=== PATIENT | female | born 1985 | race Caucasian/White ===

== ENCOUNTER 2018-07-25 21:45 | Emergency (ER) | payer SELFPAY ==
[~2018-07-25] VITALS: Ht 152.4 cm; Wt 78.5 kg
[~2018-07-25 21:45] MED LIST: FERR-43 PO
[2018-07-26] MEDS ORDERED: IBUPROFEN 600MG TABLET PO STA (00:08)
[2018-07-26] MEDS ORDERED: KETOROLAC 60MG/2ML VIAL IM ONE (02:15)
[2018-07-26 02:30] VITALS: BP 107/61
== END 2018-07-26 03:13 | disposition home or self-care (01) ==
LOC: ER 21:45
DX: S20.219A Contusion of unspecified front wall of thorax, initial encounter (principal); Z79.899 Other long term (current) drug therapy; V49.88XA Car occupant (driver) (passenger) injured in other specified transport accidents, initial encounter; Y93.89 Activity, other specified; Y92.89 Other specified places as the place of occurrence of the external cause; Y99.8 Other external cause status
CPT/HCPCS: 71045; 81025; 93005; 96372; 99283; J1885

== ENCOUNTER 2020-07-10 12:38 | Inpatient (IN) | payer SELFPAY ==
[~2020-07-10] VITALS: Ht 172.7 cm; Wt 72.1 kg
[2020-07-10] MEDS ORDERED: ACETAMINOPHEN 325MG TABLET PO ONE (13:30)
[2020-07-10 16:17] LABS: BASOPHILS % 1.1 % (0.0-2.0); EOSINOPHILS % 2.3 % (0.0-5.0); HEMATOCRIT. 38.7 % (36.0-48.0); HEMOGLOBIN. 12.7 g/dL (12.0-16.0); LYMPHOCYTES % 30.4 % (20.0-50.0); MEAN CORPUSCULAR HEMOGLOBIN 30.2 pg (28.0-32.0); MEAN CORPUSCULAR VOLUME 91.9 fL (81.0-99.0); MEAN PLATELET VOLUME 9.9 fl (7.4-10.4); MONOCYTES % 8.1 % (2.0-8.0); NEUTROPHILS % 58.1 % (40.0-76.0); PLATELET 287 x1000/uL (130-400); RED BLOOD CELL COUNT 4.21 mill/uL (4.2-5.4); RED CELL DISTRIBUTION WIDTH 12.9 % (11.6-14.6)
[2020-07-10 16:21] LABS: CHLORIDE 105 mEq/L (98-107)
[2020-07-10 16:33] LABS: B-HCG QUANTITATIVE < 1 mIU/mL (<3)
[2020-07-10] MEDS ORDERED: SODIUM CHLORIDE 0.9% 1,000 ML IV ONE (17:45)
[2020-07-10] MEDS ORDERED: MORPHINE SULFATE 4 MG/ML CPJ (NOT FOR IM USE) IV ONE (17:45)
[2020-07-10] MEDS ORDERED: IOHEXOL-300 100 ML BOTTLE ONE (18:22)
[2020-07-10 20:45] VITALS: BP 95/61
[2020-07-10] MEDS ORDERED: IPRATROPIUM/ALBUTEROL 0.5-3(2.5)MG/3ML NEB HHN PRN (22:15)
[2020-07-10] MEDS ORDERED: MORPHINE SULFATE 2 MG/ML CPJ (NOT FOR IM USE) IV PRN (22:15)
[2020-07-10] MEDS ORDERED: HYDROCODONE/ACETAMINOPHEN 5/325MG TABLET PO PRN (22:15)
[2020-07-10] MEDS ORDERED: MAGNESIUM/ALUMINUM HYDROXIDE/SIMETHICONE 30ML UDC PO PRN (22:15)
[2020-07-10] MEDS ORDERED: ONDANSETRON HCL 4MG/2ML INJ IV PRN (22:15)
[2020-07-10] MEDS ORDERED: ACETAMINOPHEN 325MG TABLET PO PRN (22:15)
[2020-07-10] MEDS ORDERED: CLONIDINE 0.1MG TABLET PO PRN (22:15)
[2020-07-10] MEDS ORDERED: DIPHENHYDRAMINE 50MG/ML VIAL IV PRN (22:15)
[2020-07-10] MEDS ORDERED: DOCUSATE SODIUM 100MG CAPSULE PO PRN (22:15)
[2020-07-10] MEDS ORDERED: HYDRALAZINE 20MG/ML VIAL IV PRN (22:15)
[2020-07-10] MEDS ORDERED: GUAIFENESIN 200MG/10ML SUGAR FREE UDC PO PRN (22:15)
[2020-07-10] MEDS ORDERED: LORAZEPAM 2MG/ML CPJ IV PRN (22:15)
[2020-07-10] MEDS ORDERED: HYDRALAZINE 10 MG in SODIUM CHLORIDE 0.9% 49.5 ML IV PRN (22:30)
[2020-07-10] MEDS: ENOXAPARIN 40MG/0.4ML SYR SUBCUT SCH (23:00)
[2020-07-11] VITALS: BP 94/53
[2020-07-11] MEDS: ENOXAPARIN 40MG/0.4ML SYR SUBCUT SCH ×2 (00:53→23:10)
[2020-07-11 01:58] LABS: CLARITY URINE CLEAR (CLEAR); COLOR URINE DK YELLOW (YELLOW); KETONES URINE NEGATIVE (NEGATIVE); LEUKOCYTE ESTERASE URINE NEGATIVE (NEGATIVE); NITRITE URINE NEGATIVE (NEGATIVE); OCCULT BLOOD URINE 3+ (NEGATIVE); PROTEIN URINE 1+ (NEGATIVE); SPECIFIC GRAVITY URINE 1.065 (1.005-1.030); UROBILINOGEN URINE 0.2 E.U./dL (0.2-1.0)
[2020-07-11 02:11] LABS: *AMPHETAMINES SCREEN URINE NEGATIVE (NEGATIVE); *BARBITURATES SCREEN URINE NEGATIVE (NEGATIVE); CANNABINOID URINE SCREEN NEGATIVE (NEGATIVE); PHENCYCLIDINE URINE SCREEN NEGATIVE (NEGATIVE)
[2020-07-11 02:12] LABS: *BENZODIAZEPINES SCREEN URINE NEGATIVE (NEGATIVE); *COCAINE SCREEN URINE NEGATIVE (NEGATIVE); METHADONE URINE SCREEN NEGATIVE (NEGATIVE)
[2020-07-11 02:13] LABS: OPIATES URINE SCREEN PRESUMTIVE POSITIVE (NEGATIVE)
[2020-07-11 04:00] VITALS: BP 98/56
[2020-07-11] MEDS: SODIUM CHLORIDE 0.9% INJ 3ML FLUSH IVF SCH ×3 (06:36→23:09)
[2020-07-11 06:42] LABS: BASOPHILS % 1.2 % (0.0-2.0); EOSINOPHILS % 3.5 % (0.0-5.0); HEMATOCRIT. 37.1 % (36.0-48.0); HEMOGLOBIN. 12.5 g/dL (12.0-16.0); LYMPHOCYTES % 29.4 % (20.0-50.0); MEAN CORPUSCULAR HEMOGLOBIN 30.9 pg (28.0-32.0); MEAN CORPUSCULAR VOLUME 91.6 fL (81.0-99.0); MEAN PLATELET VOLUME 9.9 fl (7.4-10.4); MONOCYTES % 8.7 % (2.0-8.0); NEUTROPHILS % 57.2 % (40.0-76.0); PLATELET 279 x1000/uL (130-400); RED BLOOD CELL COUNT 4.05 mill/uL (4.2-5.4); RED CELL DISTRIBUTION WIDTH 13.1 % (11.6-14.6)
[2020-07-11 08:00] VITALS: BP 93/55
[2020-07-11 08:05] LABS: CHLORIDE 107 mEq/L (98-107)
[2020-07-11 12:00] VITALS: BP 90/54
[2020-07-11] MEDS ORDERED: CEFTRIAXONE 1 G PREMIX 50 ML IV SCH (14:30)
[2020-07-11 16:00] VITALS: BP 97/55
[2020-07-11] MEDS ORDERED: CEFTRIAXONE 1,000 MG in DEXTROSE 5% WATER 50 ML IV SCH (16:30)
[2020-07-11 20:00] VITALS: BP 97/52
[2020-07-11] MEDS ORDERED: KETOROLAC 30MG/ML VIAL IV PRN (20:00)
[2020-07-12] VITALS: BP 93/49
[2020-07-12 04:00] VITALS: BP 90/53
[2020-07-12] MEDS: SODIUM CHLORIDE 0.9% INJ 3ML FLUSH IVF SCH ×2 (07:01→14:49)
[2020-07-12 08:00] VITALS: BP 100/60
[2020-07-12 12:00] VITALS: BP 95/50
[2020-07-12 14:53] VITALS: BP 95/50
== END 2020-07-12 15:38 | disposition home or self-care (01) | DRG 251 ==
LOC: ER 13:07 → 6EST 18:30 → ENRESERV 19:38
PROVIDERS: ADMIT Internal Medicine; ATTEND Internal Medicine
DX: R10.32 Left lower quadrant pain (principal); D25.9 Leiomyoma of uterus, unspecified; N93.9 Abnormal uterine and vaginal bleeding, unspecified; Z82.49 Family history of ischemic heart disease and other diseases of the circulatory system
CPT/HCPCS: 36415; 74177; 76830; 76856; 80053; 80305; 81003; 84702; 85025; 86850; 86900; 93005; 99285; J0696; J1650; J1885; J2270; J7030; J7040; J7060; Q9967

== ENCOUNTER 2021-01-10 04:06 | Emergency (ER) | payer SELFPAY ==
[~2021-01-10] VITALS: Ht 152.4 cm; Wt 77.0 kg
[2021-01-10 05:56] LABS: CHLORIDE 107 mEq/L (98-107)
[2021-01-10 05:58] LABS: BASOPHILS % 1.3 % (0.0-2.0); EOSINOPHILS % 5.6 % (0.0-5.0); HEMATOCRIT. 37.1 % (36.0-48.0); HEMOGLOBIN. 12.8 g/dL (12.0-16.0); LYMPHOCYTES % 16.3 % (20.0-50.0); MEAN CORPUSCULAR VOLUME 89.9 fL (81.0-99.0); MEAN PLATELET VOLUME 9.6 fl (7.4-10.4); NEUTROPHILS % 63.8 % (40.0-76.0); PLATELET 281 x1000/uL (130-400); RED BLOOD CELL COUNT 4.13 mill/uL (4.2-5.4); RED CELL DISTRIBUTION WIDTH 13.5 % (11.6-14.6)
[2021-01-10 06:04] LABS: CLARITY URINE CLEAR (CLEAR); COLOR URINE YELLOW (YELLOW); KETONES URINE NEGATIVE (NEGATIVE); LEUKOCYTE ESTERASE URINE NEGATIVE (NEGATIVE); NITRITE URINE NEGATIVE (NEGATIVE); OCCULT BLOOD URINE 3+ (NEGATIVE); PH URINE 5.5 (4.5-8.0); PROTEIN URINE NEGATIVE (NEGATIVE); SPECIFIC GRAVITY URINE 1.005 (1.005-1.030); UROBILINOGEN URINE 0.2 E.U./dL (0.2-1.0)
[2021-01-10 06:07] LABS: B-HCG QUANTITATIVE 682 mIU/mL (<3)
[2021-01-10 06:09] LABS: PROTHROMBIN TIME 10.3 sec (9.6-11.0)
[2021-01-10] MEDS ORDERED: IBUP-2028 MT (07:54)
[2021-01-10 08:47] VITALS: BP 113/76
== END 2021-01-10 08:53 | disposition home or self-care (01) ==
LOC: ER 04:06
DX: O03.4 Incomplete spontaneous abortion without complication (principal)
CPT/HCPCS: 36415; 76801; 80053; 81003; 84702; 85025; 86850; 86900; 99284

== ENCOUNTER 2021-01-11 10:46 | Emergency (ER) | payer SELFPAY ==
[~2021-01-11] VITALS: Ht 152.4 cm; Wt 77.0 kg
[~2021-01-11 10:46] MED LIST changes: +IBUP-2028 MT
[2021-01-11 10:51] VITALS: BP 123/66
== END 2021-01-11 13:54 | disposition home or self-care (01) ==
LOC: ER 10:46
DX: O03.9 Complete or unspecified spontaneous abortion without complication (principal)
CPT/HCPCS: 36415; 76801; 81025; 84702; 99284